=== PATIENT | female | born 1970 | race Caucasian/White ===

== ENCOUNTER 2016-10-20 07:00 | Emergency (ER) | payer OTHER ==
[~2016-10-20] VITALS: Ht 165.1 cm; Wt 77.1 kg
[2016-10-20 07:00] VITALS: BP 125/78; PULSE 89; RESP 18; TEMP 97.9; O2SAT 98
--- NOTE | 2016-10-20 07:00 | NUR ---
BROUGHT BACK TO BED #7 AND TRIAGED. WILL ASSUME CARE
--- NOTE | 2016-10-20 07:05 | NUR ---
PT STATES 1 WEEK OF FEELING WEAK AND DIZZY WITH PALPITATIONS. INCREASED STRESSORS, STATES SHE FEELS NERVOUS. UPON AWAKENING THIS AM, SYMPTOMS GOT WORSE SO SHE CALLED 911. STATES SLIGHT NAUSEA
[2016-10-20 07:39] LABS: BILIRUBIN,URINE NEGATIVE (NEGATIVE); BLOOD, URINE 1+ (NEGATIVE); CLARITY/URINE SL CLOUDY (CLEAR); COLOR,URINE YELLOW (YELLOW); GLUCOSE,URINE NEGATIVE (NEGATIVE); KETONES,URINE NEGATIVE (NEGATIVE); LEUKOCYTE ESTERASE ,URINE 2+ (NEGATIVE); NITRITE, URINE NEGATIVE (NEGATIVE); PROTEIN URINE 1+ (NEGATIVE); UROBILINOGEN,URINE 0.2 (0.2-1.0)
[2016-10-20 07:56] LABS: BACTERIA,URINE FEW /HPF (None Seen)
[2016-10-20 07:57] LABS: MUCUS,URINE 1+ /LPF (None Seen)
--- NOTE | 2016-10-20 08:04 | NUR ---
DR VIVEROS AT BEDSIDE FOR EVALUATION
[2016-10-20] MEDS ORDERED: ONDANSETRON 4 MG ODT TAB PO ONE (08:15)
[2016-10-20] MEDS ORDERED: LORazepam 1 MG TABLET PO ONE (08:15)
--- NOTE | 2016-10-20 08:26 | NUR ---
MEDICATED ORDERED. WILL MONITOR
[2016-10-20 08:52] LABS: BASOPHILS # (AUTO) 0.1 K/uL (0.0-0.2); BASOPHILS % (AUTO) 0.7 % (0.0-2.0); EOSINOPHILS # (AUTO) 0.1 K/uL (0.0-0.4); EOSINOPHILS % (AUTO) 0.7 % (0.0-4.0); HEMATOCRIT 41.2 % (36-48); HEMOGLOBIN 13.9 g/dL (12.0-16.0); LYMPHOCYTES # (AUTO) 1.4 K/uL (1.0-5.5); LYMPHOCYTES % (AUTO) 15.1 % (20.5-51.5); MEAN CORPUSCULAR HEMOGLOBIN 29 pg (27-31); MEAN CORPUSCULAR HGB CONC 34 % (32-36); MEAN CORPUSCULAR VOLUME 86 fL (79.0-98.0); MONOCYTES # (AUTO) 0.5 K/uL (0.0-1.0); MONOCYTES % (AUTO) 5.3 % (1.7-9.3); NEUTROPHILS # (AUTO) 7.2 K/uL (1.8-7.7); NEUTROPHILS % (AUTO) 78.2 % (40.0-70.0); PLATELET COUNT (AUTO) 317 K/uL (130-430); RED BLOOD CELL COUNT(AUTO) 4.78 MIL/uL (4.2-6.2); WHITE BLOOD COUNT (AUTO) 9.3 K/uL (4.8-10.8)
[2016-10-20 08:59] LABS: CALCIUM 9.1 mg/dL (8.4-11.0); CREATININE 0.8 mg/dL (0.55-1.30); POTASSIUM 3.7 mmol/L (3.5-5.1)
[2016-10-20 09:03] LABS: ALBUMIN 3.6 g/dL (3.4-4.8); TOTAL BILIRUBIN 0.4 mg/dL (0.0-1.0); TOTAL PROTEIN, SERUM 7.2 g/dL (6.4-8.3)
--- NOTE | 2016-10-20 09:28 | NUR ---
Dr. Starks at the bedside discussing plan of care. Currently awaiting new orders.
[2016-10-20 09:36] VITALS: BP 124/71; PULSE 87; RESP 19; O2SAT 99
--- NOTE | 2016-10-20 09:38 | NUR ---
Patient given written and verbal discharge instructions and verbalizes understanding. ER MD discussed with patient the results and treatment provided. Given copies of tests performed in ER. Patient in stable condition. ID arm band removed. Rx of MACROBID given. Patient educated on pain management and to follow up with PMD. Pain Scale 0/10. Opportunity for questions provided and answered.
== END 2016-10-20 09:38 | disposition home or self-care (01) ==
LOC: SED 07:00
DX: N39.0 Urinary tract infection, site not specified (principal); R31.9 Hematuria, unspecified; F41.9 Anxiety disorder, unspecified; R03.0 Elevated blood-pressure reading, without diagnosis of hypertension; Z88.1 Allergy status to other antibiotic agents
CPT/HCPCS: 36415; 80053; 81000; 84484; 85025; 87086; 93005; 99285; Q0162

== ENCOUNTER 2020-06-02 12:40 | Emergency (ER) | payer OTHER ==
[~2020-06-02] VITALS: Ht 162.6 cm; Wt 81.6 kg
[2020-06-02 12:53] VITALS: BP_SYST 145
[2020-06-02] MEDS ORDERED: ONDANSETRON HCL 4 MG/2 ML VIAL IVP ONE (13:30)
[2020-06-02] MEDS ORDERED: NACL 0.9% 1,000 ML IV ONE (13:30)
[2020-06-02] MEDS ORDERED: KETOROLAC TROMETHAMINE 30 MG VIAL IVP ONE (13:30)
[2020-06-02 14:13] VITALS: BP_SYST 113
== END 2020-06-02 14:18 | disposition home or self-care (01) ==
LOC: SED 12:40
DX: R10.13 Epigastric pain (principal); R19.7 Diarrhea, unspecified; F41.9 Anxiety disorder, unspecified; Z90.49 Acquired absence of other specified parts of digestive tract; Z90.710 Acquired absence of both cervix and uterus; Z88.1 Allergy status to other antibiotic agents
CPT/HCPCS: 81002; 81025; 96361; 96374; 96375; 99284; J1885; J2405; J7030

== ENCOUNTER 2020-07-09 09:22 | Emergency (ER) | payer OTHER ==
[~2020-07-09] VITALS: Ht 172.7 cm; Wt 81.6 kg
--- NOTE | 2020-07-09 09:22 | NUR ---
PLACED IN COVID TENT FOR TRIAGE AND EVAL
--- NOTE | 2020-07-09 09:35 | NUR ---
DR. GEORGES EXAMINING PT IN TENT
[2020-07-09 09:48] VITALS: BP_SYST 142
--- NOTE | 2020-07-09 10:08 | NUR ---
Patient given written and verbal discharge instructions and verbalizes understanding. ER MD discussed with patient the results and treatment provided. Patient in stable condition. ID arm band removed. Rx of VANTIN, ALBUTEROL, TYLENOL given. Patient educated on pain management and to follow up with PMD. Pain Scale 0/10. Opportunity for questions provided and answered. Medication side effect fact sheet provided.
[2020-07-09 10:12] VITALS: BP_SYST 142
== END 2020-07-09 10:08 | disposition home or self-care (01) ==
LOC: SED 09:22
DX: U07.1 COVID-19 (principal); F41.9 Anxiety disorder, unspecified; Z88.1 Allergy status to other antibiotic agents
CPT/HCPCS: 99283